=== PATIENT | male | born 1985 | race Caucasian/White ===

== ENCOUNTER 2016-04-06 12:19 | Emergency (ER) | payer SELFPAY ==
[2016-04-06 12:33] VITALS: BMI 24.5
[2016-04-06 12:34] VITALS: BP 121/76; PULSE 95; TEMP 98.3
== END 2016-04-06 13:14 | disposition left against medical advice (07) ==
LOC: ED 12:19
DX: M54.5 Low back pain (principal)
CPT/HCPCS: 99282